=== PATIENT | female | born 1985 | race Caucasian/White ===

== ENCOUNTER 2017-01-14 10:08 | Emergency (ER) | payer OTHER ==
[~2017-01-14] VITALS: Ht 160 cm; Wt 115.0 kg
[~2017-01-14 10:08] MED LIST: ALPR-385 PO; AMOX875T PO; AMPH1TAB83 PO; CYAN10005 PO; ESTR1DIS12 TOP; HYDR2TAB48 PO; LISI-729 PO; MULTTAB58 PO; RANI300T2 PO
[2017-01-14 10:16] VITALS: TEMP 36.9; Ht 160 cm; Wt 115.0 kg
[2017-01-14 10:39] VITALS: O2SAT 96
[2017-01-14] MEDS ORDERED: BUPR-79 PO (10:43)
[2017-01-14] MEDS ORDERED: ESTR0.5T3 PO (10:43)
[2017-01-14] MEDS ORDERED: AMPH30TA2 PO (10:43)
[2017-01-14] MEDS ORDERED: ATV/1 PO (10:43)
[2017-01-14 10:47] LABS: HEMATOCRIT 42.2 % (37-47); MEAN CELL VOLUME 90.2 fL (80-100); MEAN CORPUSCULAR HEMOGLOBIN 31.8 pg (25-34); MEAN CORPUSCULAR HGB CONC 35.3 g/dl (32-36); MEAN PLATELET VOLUME 9.9 fL (7.4-10.4); PLATELET COUNT 252 K/uL (130-400); RED BLOOD COUNT 4.68 M/uL (4.2-5.4); WHITE BLOOD COUNT 9.28 K/uL (4.8-10.8)
--- NOTE | 2017-01-14 10:53 | DIAGNOSTIC IMAGING REPORT ---
CHEST ONE VIEW PORTABLE CLINICAL HISTORY: cp dyspnea COMPARISON STUDY: No previous studies for comparison. FINDINGS: The bones soft tissues and hemidiaphragms are normal. The cardiomediastinal silhouette is normal. The lungs are clear. The pulmonary vasculature is normal. IMPRESSION: Negative chest. Electronically signed by: Prashanth Stein M.D. 01/14/2017 10:51 AM Dictated Date/Time: 01/14/2017 10:51 AM
[2017-01-14 11:08] LABS: PARTIAL THROMBOPLASTIN RATIO 1.1; PROTHROMBIN TIME (PATIENT) 10.7 SECONDS (9.0-12.0)
[2017-01-14] MEDS ORDERED: SODIUM CHLORIDE 0.9% 1000ML 500 ML IV STA (11:18)
[2017-01-14] MEDS ORDERED: ONDANSETRON INJ 2 MG/ML 2 ML VIAL IV STA (11:18)
[2017-01-14] MEDS ORDERED: HYDROmorphone INJ 0.5 MG/0.5 ML SYR IV STA ×2 (11:18→12:19)
[2017-01-14] MEDS ORDERED: SODIUM CHLORIDE 0.9% 1000ML 1,000 ML IV STA (11:18)
[2017-01-14 11:23] LABS: ALT/SGPT 57 U/L (12-78); BLOOD UREA NITROGEN 17 mg/dl (7-18); BUN/CREATININE RATIO 23.9 (10-20); CALCIUM 8.9 mg/dl (8.5-10.1); CARBON DIOXIDE 22 mmol/L (21-32); CHLORIDE 105 mmol/L (98-107); CREATININE 0.72 mg/dl (0.60-1.20); GLUCOSE 89 mg/dl (70-99); POTASSIUM 4.1 mmol/L (3.5-5.1); SODIUM 138 mmol/L (136-145)
[2017-01-14 11:27] LABS: ALB/GLOB RATIO 0.8 (0.9-2); ALKALINE PHOSPHATASE 60 U/L (45-117); AST/SGOT 30 U/L (15-37); CKMB/CK RATIO 2.2 (0-3.0)
[2017-01-14] MEDS ORDERED: METHYLPREDNISOLONE 125 MG VIAL IV STA (12:00)
[2017-01-14] MEDS ORDERED: DiphenhydrAMINE HCL 50 MG/ML VIAL IV STA (12:00)
--- NOTE | 2017-01-14 12:56 | DIAGNOSTIC IMAGING REPORT ---
CHEST CTA for PULMONARY ARTERIES CT DOSE: 575.28 mGycm HISTORY: Left-sided chest pain. TECHNIQUE: Multiaxial CT images of the chest were performed following the intravenous administration of contrast to evaluate the pulmonary arteries. Maximal intensity projection images were also obtained. COMPARISON STUDY: None. FINDINGS: There is a normal caliber thoracic aorta with no evidence for dissection. There is no evidence for pulmonary embolus. No pleural effusions. No pneumothorax. Hepatic steatosis. Cholecystectomy. Moderate hiatus hernia. Mild bibasilar subsegmental atelectasis. Small focal groundglass density within the left lung apex abutting the major fissure is of doubtful clinical significance. This could also represent mild dependent change. No mediastinal or hilar lymphadenopathy. The central airways are patent. IMPRESSION: 1. No evidence for pulmonary embolus. 2. Moderate hiatus hernia. 3. Hepatic steatosis. Electronically signed by: Tom Glover M.D. 01/14/2017 12:54 PM Dictated Date/Time: 01/14/2017 12:42 PM
--- NOTE | 2017-01-14 14:02 | EMERGENCY ROOM VISIT NOTE ---
History First contact with patient: 10:58 Chief Complaint: CHEST PAIN Stated Complaint: LEFT SIDED CP, NUMBNESS IN LT SIDE OF FACE/ARM Nursing Triage Summary: Pt reports since yesterday she has had left sided chest pain and shortness of breath. pt reports feeling lightheaded. pt reports she has a hx of pleurisy. pt reports left arm and shoulder pain "my left hand feels numb." History of Present Illness Patient is a 31-year-old white female with past medical history significant for hypertension, history of DVT, on long-term HRT status post DAR/BSO, who presents to the emergency department for evaluation of chest pain. Patient reports she developed sharp, stabbing, midsternal chest pain last evening around 5:30 when she was driving home from work. She states that the pain was persistent throughout the evening, but alleviated slightly on its own. She did not take any medications, nor perform any interventions for her pain last night. She states that she had difficulty sleeping due to the discomfort and slept sitting upright in a recliner. She did not note any shortness of breath or palpitations associated with the discomfort last evening. She states that she still had discomfort this morning when she woke up, but tried to go to work. While driving to work at around 0830 this morning, she states that the pain worsened. She would've rated it a 10/10 at its worse. She describes it as feeling like someone punched her in the chest. She had associated nausea. She states that when she got to work she thought it could be related to anxiety so she took an Ativan. Shortly thereafter she noted some numbness in her left arm and face. Her pain has subsequently decreased to a 7/10. She continues to note midsternal pain. It does not radiate. She denies any recent cough, congestion or upper respiratory symptoms. She does note that her right leg was slightly sore last evening. She has not noted increased swelling. She does have a history of DVT in 2010 or 2011. She was anticoagulated on Coumadin for 6 months. 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 She denies any other prolonged immobilization. She is a smoker. Review of Systems Review of systems as per HPI. All other systems reviewed were negative. 10 systems reviewed. Past Medical/Surgical History Medical Problems: (1) ADD (attention deficit disorder) (2) Calculus Of Kidney (3) GERD (gastroesophageal reflux disease) (4) History of deep vein thrombosis (5) Hypertension (6) Obesity (7) On hormone replacement therapy (8) Seasonal affective disorder Surgical Problems: (1) Status post cholecystectomy (2) Status post laser lithotripsy of ureteral calculus (3) Status post tonsillectomy and adenoidectomy (4) Status post total hysterectomy and bilateral salpingo-oophorectomy Electronic medical records are reviewed and summarized as above/below. See Problem List. Social History Smoking Status: Current Every Day Smoker Marital Status: Housing Status: lives with family Occupation Status: employed Current/Historical Medications Scheduled Amphetamine-Dextroamphetamine 30MG (Adderall 30MG), 15 MG PO TID Bupropion (Wellbutrin Sr), 150 MG PO HS Estradiol (Estradiol), 0.5 TAB PO DAILY Lisinopril (Zestril), 10 MG PO QAM Multiple Vitamin (Multivitamin), 1 TAB PO QAM Ranitidine (Zantac), 300 MG PO HS Scheduled PRN Lorazepam (Ativan), 1 MG PO TID PRN for Anxiety Allergies Coded Allergies: Acetaminophen (Verified Allergy, Mild, Itchy, 01/14/17) Adhesives (Verified Allergy, Mild, Skin Irritation, 01/14/17) Iodine (Verified Allergy, Mild, Skin Irritation, 01/14/17) Oxycodone (Verified Allergy, Mild, ?, 01/14/17) BEE STING (Unverified Allergy, Unknown, anaphylaxis, 01/14/17) Cyclobenzaprine (Verified Allergy, Unknown, BODY GETS HEAT SENSATION PER PATIENT, 01/14/17) Hydrocodone (Verified Allergy, Unknown, RASH, TROUBLE BREATHING, pt can take dilaudid w/o rxn, 01/14/17) Red Dye (Verified Allergy, Unknown, HIVES, 01/14/17) Shellfish (Verified Allergy, Unknown, ANAPHYLAXIS, 01/14/17) Physical Exam Vital Signs Date Time Temp Pulse Resp B/P Pulse Ox O2 Delivery O2 Flow Rate FiO2 01/14/17 14:07 72 16 146/98 96 Room Air 01/14/17 13:28 76 01/14/17 13:03 72 18 116/77 100 Room Air 01/14/17 12:17 75 18 111/73 96 Room Air 01/14/17 11:35 73 20 135/94 96 Room Air 01/14/17 10:39 96 Room Air 01/14/17 10:39 96 Room Air 01/14/17 10:21 74 01/14/17 10:16 36.9 78 18 145/99 99 Room Air 01/14/17 10:16 98 Room Air 01/14/17 10:16 98 Room Air Physical Exam CONSTITUTIONAL: Patient is an obese 31-year-old white female who is awake and alert and laying semiupright on the gurney in no acute distress. EYES: Pupils equal, round, reactive to light and accommodation. EOMs intact without nystagmus. Sclera are anicteric. ENT: Tympanic membranes intact, with normal landmarks. External canals are clear. Oral and nasopharynx are clear. Mucous membranes are moist, no lesions , tongue and gums appear normal. NECK: Supple without lymphadenopathy. No thyromegaly. No meningeal signs. Full active range of motion without discomfort. CARDIOVASCULAR: Regular rate and rhythm, with normal S1 and S2, no murmur or gallop or rub is heard. No carotid bruits auscultated. No JVD. Peripheral pulses easy to palpable. She has reproducible discomfort to palpation in the midsternal region. RESPIRATORY: Breath sounds equal and clear to auscultation without wheezes, rales, or rhonchi heard. Full and equal chest expansion without accessory muscle use or retractions. GI: Bowel sounds are present. Abdomen is soft, nontender, nondistended. No organomegaly. No pulsatile masses. No guarding or rebound. No pain in the epigastric region. MUSCULOSKELETAL: Full range of motion of extremities x 4 with good strength. No cyanosis, edema, joint tenderness or swelling. No deformity. Calves are soft and nontender bilaterally. INTEGUMENTARY: No lesions or rash, normal skin turgor. NEUROLOGICAL: Alert, oriented, and cooperative. Cranial nerves, sensation and strength grossly intact. Pupils round, equal, and react to light, EOMs are full. LYMPH: No lymphadenopathy. Medical Decision & Procedures ER Provider Diagnostic Interpretation: CHEST ONE VIEW PORTABLE CLINICAL HISTORY: cp dyspnea COMPARISON STUDY: No previous studies for comparison. FINDINGS: The bones soft tissues and hemidiaphragms are normal. The cardiomediastinal silhouette is normal. The lungs are clear. The pulmonary vasculature is normal. IMPRESSION: Negative chest. CHEST CTA for PULMONARY ARTERIES CT DOSE: 575.28 mGycm HISTORY: Left-sided chest pain. TECHNIQUE: Multiaxial CT images of the chest were performed following the intravenous administration of contrast to evaluate the pulmonary arteries. Maximal intensity projection images were also obtained. COMPARISON STUDY: None. FINDINGS: There is a normal caliber thoracic aorta with no evidence for dissection. There is no evidence for pulmonary embolus. No pleural effusions. No pneumothorax. Hepatic steatosis. Cholecystectomy. Moderate hiatus hernia. Mild bibasilar subsegmental atelectasis. Small focal groundglass density within the left lung apex abutting the major fissure is of doubtful clinical significance. This could also represent mild dependent change. No mediastinal or hilar lymphadenopathy. The central airways are patent. IMPRESSION: 1. No evidence for pulmonary embolus. 2. Moderate hiatus hernia. 3. Hepatic steatosis. Laboratory Results 01/14/17 10:30 01/14/17 10:53 Test 01/14/17 10:30 01/14/17 10:53 Red Blood Count 4.68 M/uL (4.2-5.4) Mean Corpuscular Volume 90.2 fL (80-100) Mean Corpuscular Hemoglobin 31.8 pg (25-34) Mean Corpuscular Hemoglobin Concent 35.3 g/dl (32-36) RDW Standard Deviation 41.5 fL (36.4-46.3) RDW Coefficient of Variation 12.6 % (11.5-14.5) Mean Platelet Volume 9.9 fL (7.4-10.4) Prothrombin Time 10.7 SECONDS (9.0-12.0) Prothromb Time International Ratio 1.0 (0.9-1.1) Activated Partial Thromboplast Time 27.8 SECONDS (21.0-31.0) Partial Thromboplastin Ratio 1.1 D-Dimer 720 ug/L FEU (0-500) Anion Gap 11.0 mmol/L (3-11) Est Creatinine Clear Calc Drug Dose 135.8 ml/min Estimated GFR () 127.5 Estimated GFR (Non- 110.0 BUN/Creatinine Ratio 23.9 (10-20) Calcium Level 8.9 mg/dl (8.5-10.1) Total Bilirubin 0.2 mg/dl (0.2-1) Aspartate Amino Transf (AST/SGOT) 30 U/L (15-37) Alanine Aminotransferase (ALT/SGPT) 57 U/L (12-78) Alkaline Phosphatase 60 U/L (45-117) Total Creatine Kinase 194 U/L (26-192) Creatine Kinase MB 4.2 ng/ml (0.5-3.6) Creatine Kinase MB Ratio 2.2 (0-3.0) Troponin I < 0.015 ng/ml (0-0.045) Total Protein 7.3 gm/dl (6.4-8.2) Albumin 3.2 gm/dl (3.4-5.0) Globulin 4.1 gm/dl (2.5-4.0) Albumin/Globulin Ratio 0.8 (0.9-2) Medications Administered Medications (Trade) Dose Ordered Sig/[place] Route Start Time Stop Time Status Last Admin Dose Admin Sodium Chloride 500 ml @ 999 mls/hr Q31M STAT IV 01/14/17 11:18 01/14/17 11:48 DC 01/14/17 11:33 999 MLS/HR Sodium Chloride (Nss 1000ml) 1,000 ml @ 200 mls/hr Q5H STAT IV 01/14/17 11:18 01/14/17 15:20 DC 01/14/17 11:33 200 MLS/HR Ondansetron HCl (Zofran Inj) 4 mg NOW STAT IV 01/14/17 11:18 01/14/17 11:19 DC 01/14/17 11:33 4 MG Hydromorphone HCl (Dilaudid Inj) 0.5 mg NOW STAT IV 01/14/17 11:18 01/14/17 11:19 DC 01/14/17 11:34 0.5 MG Diphenhydramine HCl (Benadryl Inj) 50 mg NOW STAT IV 01/14/17 12:00 01/14/17 12:02 DC 01/14/17 12:16 50 MG Methylprednisolone Sodium Succinate (Solu-Medrol IV) 125 mg NOW STAT IV 01/14/17 12:00 01/14/17 12:02 DC 01/14/17 12:16 125 MG Hydromorphone HCl (Dilaudid Inj) 0.5 mg NOW STAT IV 01/14/17 12:19 01/14/17 12:20 DC 01/14/17 13:00 0.5 MG ECG Indication: chest pain Rate (beats per minute): 74 Rhythm: normal sinus Findings: no acute ischemic change, no ectopy Change: no significant change ED Course The patient was seen and evaluated as above. Old records are reviewed. Critical pathways had been implemented prior to my evaluation of the patient. EKG was performed and noted a normal sinus rhythm at 74 beats per minute, without acute ischemic changes. Chest x-ray was performed and was unremarkable. Laboratory studies including CBC, CMP, CK, CK-MB and troponin, PT /PTT/INR and [id number] d-dimer were obtained. The patient was hydrated with normal saline solution. She was medicated with Dilaudid 0.5 mg and Zofran 4 mg IV for pain. Laboratory studies noted a normal white count and H&H. Electrolytes and renal function are within normal limits. Troponin is negative 1, with hours, she has slight elevation of her total CK. Her d-dimer was elevated at 720. He states that these symptoms/INR are normal. Given her multiple PE risk factors including smoking, oral contraceptive use, history of DVT and elevated d-dimer, CT of the chest was performed. The patient was premedicated with Benadryl 50 mg IV and Solu-Medrol 125 mg IV due to a reported history of a topical iodine allergy and swelling/rash selfish. She did report that she has received IV contrast in the past with premedication including Benadryl without difficulty. CT scan was negative for PE. She had a hiatal hernia and hepatic steatosis noted. The patient continued to note some discomfort when she returned from CT and was given an additional Dilaudid 0.5 mg IV. All laboratory and diagnostic imaging studies were discussed with the patient and her , and reviewed with attending physician. Differential diagnosis includes acute myocardial infarction, acute coronary syndrome, myocarditis, pericarditis, pulmonary embolism, pneumonia, pneumothorax, pleurisy, COPD/asthma exacerbation, musculoskeletal, anxiety, costochondritis, GERD, gastritis, among others. The patient was reassured. She declined prescription analgesia. She was advised to use [id number] medications for discomfort, and follow closely with her primary care provider for further care and evaluated. She is discharged to home with her driving. She rated her discomfort a 6/10 at discharge. Vital signs were stable at that time. Medical Decision See ED Course. Impression Primary Impression: Substernal precordial chest pain Departure Information Referrals Fred Turner DO (PCP) Patient Instructions My [facility] Additional Instructions DO NOT drive, drink alcohol, operate machinery, or perform dangerous activities today. You were given medications in the ER that can affect your ability to safely function or operate a vehicle. Ibuprofen(Motrin, Advil) may be used for fever or pain. Use 600mg every six hours as needed. Take with food. Avoid using more than 2400mg in a 24 hour period. Do not use 2400mg per day for more than three consecutive days without physician direction. Prolonged inappropriate use can lead to stomach upset or ulcers. (AND/OR) Acetaminophen(Tylenol) may be used for fever or pain. Use 1000mg every six hours as needed. Avoid using more than 3000mg in a 24 hour period. Rest and drink plenty of fluids as tolerated. Continue current medications. Avoid strenuous activities and anything that worsens your pain. Resume normal activities once your symptoms resolve. Return to the ER immediately for worsening or persistent chest pain, abdominal pain, vomiting, fevers, chest pains, difficulty breathing, worsening of your condition, or as needed. Follow up with your primary physician in 2-3 days for a recheck of your current condition.
[2017-01-14 14:07] VITALS: BP 146/98; PULSE 72; O2SAT 96
== END 2017-01-14 14:14 | disposition home or self-care (01) ==
LOC: C.EDB 10:09 → C.EDC 14:14
DX: R07.2 Precordial pain (principal); I10 Essential (primary) hypertension; K21.9 Gastro-esophageal reflux disease without esophagitis; F90.9 Attention-deficit hyperactivity disorder, unspecified type; F17.200 Nicotine dependence, unspecified, uncomplicated; Z79.890 Hormone replacement therapy; Z86.718 Personal history of other venous thrombosis and embolism; Z87.442 Personal history of urinary calculi; Z79.899 Other long term (current) drug therapy; Z90.49 Acquired absence of other specified parts of digestive tract; Z98.51 Tubal ligation status; Z98.890 Other specified postprocedural states; Z88.5 Allergy status to narcotic agent; Z88.6 Allergy status to analgesic agent; Z88.8 Allergy status to other drugs, medicaments and biological substances; Z91.018 Allergy to other foods; Z91.030 Bee allergy status; Z91.09 Other allergy status, other than to drugs and biological substances